=== PATIENT | female | born 1985 | race Caucasian/White ===

== ENCOUNTER → 2023-02-13 08:31 | Outpatient (CLI) | payer BC, SELFPAY ==
--- NOTE | ~2023-02-13 | MR_ITS ---
EXAMINATION: MR lumbar spine wo con DATE: 02/13/2023 09:02 INDICATION: Low back pain. Right hip pain. TECHNIQUE: Magnetic resonance imaging (MRI) of the lumbar spine was performed without intravenous con trast. Sequences included sagittal T2-weighted FSE, sagittal T2-weighted FS FSE, sagittal T1-weighted FSE, and axial T2-weighted FSE. COMPARISON: Lumbar spine MRI 09/16/2018 FINDINGS: There is 5 degrees levocurvature of lumbar spine. Vertebral body heights are normal. There is severely decreased disc height at L4-L5 and L5-S1 with endplate remodeling. The distal spinal cord signal intensity is normal. The conus medullaris is at L1. The following disc levels are specificall y discussed: L1-L2: The disc does not extend beyond the endplate margin. There is mild bilateral facet joint osteo arthritis. There is no neural foraminal stenosis. There is no central canal stenosis. L2-L3: The disc is mildly bulging. There is mild bilateral facet joint osteoarthritis. There is mild bilateral neural foraminal stenosis. There is no central canal stenosis. L3-L4: The disc is mildly bulging. There is mild bilateral facet joint osteoarthritis. There is mild left neural foraminal stenosis. There is no central canal stenosis. L4-L5: The disc is bulging and has an annular fissure. There is severe bilateral facet joint osteoart hritis. There is mild right and moderate left neural foraminal stenosis. There is mild central canal stenosis. L5-S1: The disc is bulging and has an annular fissure. There is mild bilateral facet joint osteoarthr itis. There is mild bilateral neural foraminal stenosis. There is mild central canal stenosis. IMPRESSION: 1. Severe lower lumbar spondylosis, worsened from 09/16/2018. Reviewed, dictated and finalized at location E.
== END ==
PROVIDERS: PCP Family Medicine; Visit Provider Family Medicine
DX: M25.551 Pain in right hip (principal); M70.61 Trochanteric bursitis, right hip; M54.50 Low back pain, unspecified; M43.06 Spondylolysis, lumbar region
CPT/HCPCS: 72148

== ENCOUNTER → 2023-02-25 09:17 | Outpatient (CLI) | payer BC, SELFPAY ==
--- NOTE | ~2023-02-25 | MMUS_ITS ---
EXAMINATION: MM diagnostic ruba BI w jair, US breast RT limited HISTORY: History of nodular appearing fibroglandular tissue in the subareolar aspect of the right jessica ast on ultrasound. TECHNIQUE: Craniocaudal, mediolateral, and mediolateral oblique 3-D tomosynthesis images of the breas ts were performed and synthetic 2-D images were generated. CAD analysis was submitted and interpreted . High resolution limited right breast ultrasound was performed. COMPARISON: 08/13/2022, 02/19/2022, 04/24/2021, 01/19/2021, 01/05/2020 BREAST PARENCHYMAL COMPOSITION: The breasts are extremely dense, which lowers the sensitivity of mamm ography. FINDINGS: MAMMOGRAPHIC FINDINGS: No suspicious mass, calcification, or architectural distortion are identified in either breast to sug gest malignancy. There has been no suspicious interval change. ULTRASOUND: There are cysts measuring up to 6 mm in the subareolar aspect of the right breast. No suspicious cyst ic or solid mass is identified. IMPRESSION: 1. No mammographic or sonographic evidence of malignancy. 2. Recommend routine screening. BI-RADS Category 2: Benign finding(s). Reviewed, dictated and finalized at location A. MANAGER IMPRESSION: 1. No mammographic or sonographic evidence of malignancy. 2. Recommend routine screening. BI-RADS Category 2: Benign finding(s).
== END ==
PROVIDERS: Visit Provider Obstetrics & Gynecology
DX: R92.8 Other abnormal and inconclusive findings on diagnostic imaging of breast (principal); Z80.3 Family history of malignant neoplasm of breast
CPT/HCPCS: 76642; 77062; 77066; G0279

== ENCOUNTER 2025-02-08 13:13 | Outpatient (CLI) | payer BC, SELFPAY ==
--- OUTSIDE RECORDS SUMMARY | 2023-08-25 03:45 | XMS_ITS ---
Author Organization [facility] Address [address] [place] [address] Care Team Providers Care Central Stores Attendant Name Role Phone Dr. Feliz Delarosa Primary Care Provider [phone] Annette Mattson Unavailable [phone] Results Component Value Reference Range Notes C Diff PCR Reviewed date:09/01/2023 12:00:00 AM Interpretation: Performing Lab: Notes/Report: Clostridium Difficle PCR Negative Campylobacter Stool Reviewed date:09/01/2023 12:00:00 AM Interpretation: Performing Lab: Notes/Report: Campylobacter Ag, Qual, Stool Negative Fecal Leukocytes Reviewed date:09/01/2023 12:00:00 AM Interpretation: Performing Lab: Notes/Report: Fecal Leuk See Below Giardia and Cryptosporidium Antigen Reviewed date:09/01/2023 12:00:00 AM Interpretation: Performing Lab: Notes/Report: Cryptospor Ag Negative Giardia Ag Negative Occult Blood Stool Reviewed date:09/01/2023 12:00:00 AM Interpretation: Performing Lab: Notes/Report: Occult Bld Stl Negative Ova and Parasite, Fecal-ARUP Reviewed date:09/01/2023 12:00:00 AM Interpretation: Performing Lab: Notes/Report: OP See Below Salmanella Shigella Culture Reviewed date:09/01/2023 12:00:00 AM Interpretation: Performing Lab: Notes/Report: C NegritoShig See Below Shiga Toxin Reviewed date:09/01/2023 12:00:00 AM Interpretation: Performing Lab: Notes/Report: Shiga Toxin 1, Qual, Stool Negative Shiga Toxin 2, Qual, Stool Negative REASON FOR VISIT Spot #3 Diarrhea Vital Signs Temperature 99.1 degrees Fahrenheit 08/25/19 24 Blood pressure systolic 128 mm Hg 08/25/19 24 Blood pressure diastolic 82 mm Hg 024 Heart Rate 71 /min 08/25/2023 Oximetry 97 % 08/25/2023 Encounters Encounter Location Date Provider Diagnosis [address] [address] 08/25/2023 Annette Mattson Diarrhea, unspecified R19.7 Assessments Encounter Date Diagnosis (ICD Code) Assessment Notes Treatment Notes Treatment Clinical Notes Section Notes 08/25/2023 Diarrhea, unspecified (ICD-10 - R19.7) Plan Of Treatment No Information Progress Notes * CHIQUISJaiden VARELAOB:1985 ( 39 yo F)Acc No.[id number]:08/25/2023 Patient: Bella Adams Provider: Miki Mattson NP :1985 A ge:38 Y S ex:Female Date:08/25/2023 Phone: [facility] Pcp:Dr. Feliz Delarosa Subjective: * Chief Complaints: * S pot #3 Diarrhea Objective: * Vitals: B P: 128/82 mm Hg, HR: 71 /min, Temp: 99.1 F, Oxygen sat %: 97 %. Past Vitals:* 06/19/2023 BP: 102/60 mm Hg, HR: 81 /mi n, Oxygen sat %: 98 %, Wt: 137.00 lbs, Wt-k.14 kg Assessment: * Assessment: 1. D iarrhea, unspecified - R19.7 S pecify :Src Diagnosis Name: Diarrhea Plan: * Labs: * L ab: Occult Blood Stool Value Reference Range O ccult Bld Stl Negative ?Lab: Shiga Toxin* Value Reference Range S medina Toxin 1, Qual, Stool Negative * S medina Toxin 2, Qual, Stool Negative ?Lab: Salmanella Shigella Culture* Value Reference Range C SalShig See Below * C SalShig: _ F inal No Salmonella or Shigella isolated at 3 days. _ _ T est Performed by: Madeleine Calixto [facility] [address] [place] [address], [address] [place] [phone] P santosh : ?Lab: Fecal Leukocytes* Value Reference Range F ecal Leuk See Below * Fecal Leuk: _ F inal No Leukocytes seen. _ _ T est Performed by: Madeleine Davila Nathalie [facility] [address] [place] [address], [address] [place] [phone] P santosh : ?Lab: Ova and Parasite, Fecal-ARUP* Value Reference Range O P See Below * OP: _ C malcolm Name Results Units Flag Ref Range _ O va and Parasite, Fecal Interp Negative Negative _ _ I NTERPRETIVE INFORMATION: Ova and Parasite, Fecal _ M ethod for identification of Ova and Parasites includes wet mount a nd trichrome stains. _ D ue to the various shedding cycles of many parasites, three s eparate stool specimens collected over a 5-7-day period are r ecommended for ova and parasite examination. A single negative r esult does not rule out the possibility of a parasitic infection. T he ova and parasite exam does not specifically detect C ryptosporidium, Cyclospora, Cystoisospora, and Microsporidia. For a dditional test information refer to [facility] consult, h [email or web address] P erformed By: [employer] [address] [place] [address] L aboratory Director: Everett Mckeon MD, PhD C MARIAH Number: [id number] _ ?Lab: C Diff PCR* Value Reference Range C lostridium Difficle PCR Negative * Clostridium Difficle PCR: _ A negative result does not rule out the presence of PCR reaction inhibitor(s) t hat is present in the patient specimen in a concentration that is below the d etection limit of the kathy. _ T est results should be used in conjunction with standard clinical evaluation for d iagnosis and patient management. _ A ll positive C Difficile PCR results reflex to C Difficile Toxins A&B testing. _ T est Performed by: Madeleine Davila Nathalie [facility] [address] [place] [address], [address] [place] [address] P santosh : ?Lab: Giardia and Cryptosporidium Antigen* Value Reference Range C ryptospor Ag Negative * G iardia Ag Negative ?Lab: Campylobacter Stool* Value Reference Range C ampylobacter Ag, Qual, Stool Negative * Electronic signature of Graciela Mattson on 02/08/2025 at 03:12 PM CDT Sign off status: Pending * Provider: Miki Mattson NP Date: 0 08/25/2023 Generated for Pravin hyman/Velma/Edgar on: 1 03:12 PM CDT
--- OUTSIDE RECORDS SUMMARY | 2023-09-05 11:00 | XMS_ITS ---
Author Organization [facility] Address [address] [place] [address] Care Team Providers Care News Producer Name Role Phone Dr. Feliz Delarosa Primary Care Provider [phone] Dr. Roxy Callahna Unavailable [phone] REASON FOR VISIT f/u diarrhea Vital Signs Temperature 98.5 degrees Fahrenheit 09/05/19 Blood pressure systolic 102 mm Hg 09/05/19 Blood pressure diastolic 68 mm Hg 024 Heart Rate 60 /min 09/05/2023 Respiratory Rate 16 /min 09/05/2023 Weight 136.51 lbs 09/05/2023 Oximetry 99 % 09/05/2023 Weight-kg 61.92 kg 09/05/2023 Encounters Encounter Location Date Provider Diagnosis [address] [address] 09/05/2023 Dr. Rxoy Callahan Sacroiliitis, not elsewhere classified M46.1 ; Constipation, unspecified K59.00 and Spinal stenosis, lumbar region without neurogenic claudication M48.061 Assessments Encounter Date Diagnosis (ICD Code) Assessment Notes Treatment Notes Treatment Clinical Notes Section Notes 09/05/2023 Sacroiliitis, not elsewhere classified (ICD-10 - M46.1) 09/05/2023 Constipation, unspecified (ICD-10 - K59.00) 09/05/2023 Spinal stenosis, lumbar region without neurogenic claudication (ICD-10 - M48.061) Plan Of Treatment No Information Progress Notes * Jaiden CLARKOB:1985 ( 39 yo F)Acc No.[id number]:09/05/2023 Progress Notes Patient: Bella Adams Provider: Shahida Callahan MD :1985 A ge:38 Y S ex:Female Date:09/05/2023 Phone: Address:[facility] Pcp:Dr. Feliz Delarosa Subjective: * Chief Complaints: * F /u diarrhea Objective: * Vitals: B P: 102/68 mm Hg, HR: 60 /min, RR: 16 /min, Temp: 98.5 F, Oxygen sat %: 99 %, Wt: 136.51 lbs, Wt-k.92 kg. Past Vitals:* 06/19/2023 BP: 102/60 mm Hg, HR: 81 /mi n, Oxygen sat %: 98 %, Wt: 137.00 lbs, Wt-k.14 kg Assessment: * Assessment: 1. C onstipation, unspecified - K59.00 S pecify :Src Diagnosis Name: Constipation 2 . S acroiliitis, not elsewhere classified - M46.1 S pecify :Src Diagnosis Name: Sacroiliitis 3 . S bang stenosis, lumbar region without neurogenic claudication - M48.061? Specify :Src Diagnosis Name: Lumbar spinal stenosis * Electronic signature of Dr. Roxy Callahan on 02/08/2025 at 03:12 PM CDT Sign off status: Pending * Provider: Shahida Callahan MD Date: 0 09/05/2023 Generated for Normai boogie/Velma/eTransmitting on: 1 03:12 PM CDT
--- OUTSIDE RECORDS SUMMARY | 2023-09-10 04:00 | XMS_ITS ---
Author Organization [facility] Address [address] [place] [address] Care Team Providers Care Calculus Teacher Name Role Phone Dr. Feliz Delarosa Primary Care Provider [phone] Migration, Provider Unavailable Unavailable REASON FOR VISIT EMR-Sandeep Encounters Encounter Location Date Provider Diagnosis [facility] [address] [place] [address] 09/10/2023 Provider Migration Constipation, unspecified K59.00 Assessments Encounter Date Diagnosis (ICD Code) Assessment Notes Treatment Notes Treatment Clinical Notes Section Notes 09/10/2023 Constipation, unspecified (ICD-10 - K59.00) Plan Of Treatment No Information Progress Notes * Jaiden CLARKOB:1985 ( 39 yo F)Acc No.[id number]:09/10/2023 Patient: Bella Adams Provider: Louis castano Migration :1985 A ge:38 Y S ex:Female Date:09/10/2023 Phone: Address:[address] [place], [place] [phone] Pcp:Dr. Feliz Delarosa Subjective: * Chief Complaints: * E MR-Sandeep Objective: Past Vitals:* 09/05/2023 BP: 102/68 mm Hg, HR: 60 /mi n, Oxygen sat %: 99 %, Wt: 136.51 lbs, Wt-k.92 kg * 06/19/2023 BP: 102/60 mm Hg, HR: 81 /mi n, Oxygen sat %: 98 %, Wt: 137.00 lbs, Wt-k.14 kg Assessment: * Assessment: 1. C onstipation, unspecified - K59.00 S pecify :Src Diagnosis Name: Constipation * Electronic signature of Estrellita acevedo Migration on 02/08/2025 at 03:13 PM CDT Sign off status: Pending * Provider: Louis castano Migration Date: 0 09/10/2023 Generated for Pravin hyman/Velma/Edgar on: 1 03:13 PM CDT
--- OUTSIDE RECORDS SUMMARY | 2023-10-03 04:00 | XMS_ITS ---
Author Organization [facility] Address [address] [place] [address] Care Team Providers Care Pile Fabric Knitter Name Role Phone Dr. Feliz Delarosa Primary Care Provider [phone] Migration, Provider Unavailable Unavailable REASON FOR VISIT [facility] Encounters Encounter Location Date Provider Diagnosis [facility] [address] [place] [address] 10/03/2023 Provider Migration Constipation, unspecified K59.00 Assessments Encounter Date Diagnosis (ICD Code) Assessment Notes Treatment Notes Treatment Clinical Notes Section Notes 10/03/2023 Constipation, unspecified (ICD-10 - K59.00) Plan Of Treatment No Information Progress Notes * Jaiden CLARKOB:1985 ( 39 yo F)Acc No.[id number]:10/03/2023 Patient: Bella Adams Provider: Louis castano Migration :1985 A ge:38 Y S ex:Female Date:10/03/2023 Phone: Address:[address] [place], [place] [phone] Pcp:Dr. Feliz Delarosa Subjective: * Chief Complaints: [...] of Estrellita acevedo Migration on 02/08/2025 at 03:12 PM CDT Sign off status: Pending * Provider: Louis castano Migration Date: 0 10/03/2023 Generated for Pravin hyman/Velma/Edgar on: 1 03:12 PM CDT
--- OUTSIDE RECORDS SUMMARY | 2023-10-29 04:00 | XMS_ITS ---
Author Organization [facility] Address [address] [place] [address] Care Team Providers Care Major Assembly Lineman Name Role Phone Dr. Feliz Delarosa Primary Care Provider [phone] Migration, Provider Unavailable Unavailable REASON FOR VISIT EMR-[facility] Encounters Encounter Location Date Provider Diagnosis [facility] [address] [place] [address] 10/29/2023 Provider Migration Constipation, unspecified K59.00 Assessments Encounter Date Diagnosis (ICD Code) Assessment Notes Treatment Notes Treatment Clinical Notes Section Notes 10/29/2023 Constipation, unspecified (ICD-10 - K59.00) Plan Of Treatment No Information Progress Notes * Jaiden CLARKOB:1985 ( 39 yo F)Acc No.[id number]:10/29/2023 Patient: Bella Adams Provider: Louis castano Migration :1985 A ge:38 Y S ex:Female Date:10/29/2023 Phone: Address:[address] [place], [place] [phone] Pcp:Dr. Feliz Delaroas Subjective: * Chief Complaints: * E MR-Sandeep [...] * Provider: Louis castano Migration Date: 0 10/29/2023 Generated for Pravin hyman/Velma/Edgar on: 1 03:12 PM CDT
--- OUTSIDE RECORDS SUMMARY | 2023-11-03 04:00 | XMS_ITS ---
Author Organization [facility] Address [address] [place] [address] Care Team Providers Care Generation Technologist Name Role Phone Dr. Feliz Delarosa Primary Care Provider [phone] Migration, Provider Unavailable Unavailable REASON FOR VISIT EMR-Sandeep Encounters Encounter Location Date Provider Diagnosis [facility] [address] [place] [address] 11/03/2023 Provider Migration Constipation, unspecified K59.00 Assessments Encounter Date Diagnosis (ICD Code) Assessment Notes Treatment Notes Treatment Clinical Notes Section Notes 11/03/2023 Constipation, unspecified (ICD-10 - K59.00) Plan Of Treatment No Information Progress Notes * Jaiden CLARKOB:1985 ( 39 yo F)Acc No.[id number]:11/03/2023 Patient: Bella Adams Provider: Louis castano Migration :1985 A ge:38 Y S ex:Female Date:11/03/2023 Phone: Address:[address] [place], [place] [phone] Pcp:Dr. Feliz Delarosa Subjective: * Chief Complaints: [...] * Provider: Louis castano Migration Date: 0 11/03/2023 Generated for Pravin hyman/Velma/Edgar on: 1 03:12 PM CDT
--- OUTSIDE RECORDS SUMMARY | 2024-03-13 04:00 | XMS_ITS ---
Author Organization [facility] Address [address] [place] [address] Care Team Providers Care Stave Cutter Name Role Phone Dr. Feliz Delarosa Primary Care Provider [phone] Migration, Provider Unavailable Unavailable REASON FOR VISIT EMR-Sandeep Encounters Encounter Location Date Provider Diagnosis [facility] [address] [place] [address] 03/13/2024 Provider Migration Plan Of Treatment Medication Medication Name Sig Start Date Stop Date Notes Cyclobenzaprine HCl 10 MG Tablet 1 Oral three times a day; Duration: 10 01/30/2023 02/08/2023 ,PRN Reason:for pain Ondansetron 4 MG Tablet Disintegrating 1 Oral every 6-8 hours; Duration: 0 08/25/2023 08/25/2023 Trulance 3 MG Tablet 3 Oral every day; Duration: 09/05/2023 10/02/2023 did not work,discontinuere ason:Discontinued buPROPion HCl 75 MG Tablet Oral; Duratio n: 14 02/15/2022 02/28/2022 busPIRone HCl 10 MG Tablet 1 Oral two ti mes a day; Duration: 90 11/22/2021 02/14/2022 ,discontinuereason :Discontinued buPROPion HCl ER (XL) 150 MG Tablet Extended Release 24 Hour 1 Oral every day; Duration: 90 07/30/2021 02/14/2022 ,discontinuereason :Discontinued Nortriptyline HCl 10 MG/5ML Solution 5 Oral every night at bedtime; Duration: 30 06/19/2023 07/08/2023 ,discontinuereason :Refilled HYDROcodone-Acetaminophen 10-325 MG Tablet 1 Oral Q6H; Duration: 01/30/2023 02/08/2023 ,PRN Reason:for pain Doxycycline Monohydrate 100 MG Capsule 1 Oral two times a day; Duration: 06/30/2023 07/09/2023 Motegrity 2 MG Tablet 1 Oral every day; Duration: 11/03/2023 01/31/2024 Wellbutrin XL 150 MG Tablet Extended Release 24 Hour 1 Oral every day; Duration: 08/14/2020 08/14/2020 Rx Refill Request,discontinu ereason:Refilled Polyethylene Glycol 3350 17 GM/SCOOP Powder Oral; Duration: 04/05/2021 06/03/2021 Nortriptyline HCl 25 MG Capsule 1 Oral every night at bedtime; Duration: 07/09/2023 09/04/2023 ,discontinuereason :Discontinued Progress Notes * Jaiden CLARKOB:1985 ( 39 yo F)Acc No.[id number]:03/13/2024 Patient: Jimenez CEVALLOS Bella :1985 A ge:38 Y S ex:Female Phone: Address[facility] [place], [address] * Refills Stop Wellbutrin XL Tablet Extended Release 24 Hour, 150 MG, Oral, 90, 1, every day, 90 Stop Nortriptyline HCl Capsule, 25 MG, Oral, 30, 1, every night at bedtime, 30 Stop Doxycycline Monohydrate Capsule, 100 MG, Oral, 20, 1, two times a day, 10 Stop HYDROcodone-Acetaminophen Tablet, 10-325 MG, Oral, 15, 1, Q6H, 10 Stop busPIRone HCl Tablet, 10 MG, Oral, 180, 1, two times a day, 90 Stop Ondansetron Tablet Disintegrating, 4 MG, Oral, 30, 1, every 6-8 hours, 0 Stop Trulance Tablet, 3 MG, Oral, 90, 3, every day, 30 Stop Polyethylene Glycol 3350 Powder, 17 GM/SCOOP, Oral, 1020, 30 Stop Motegrity Tablet, 2 MG, Oral, 30, 1, every day, 30 Stop Cyclobenzaprine HCl Tablet, 10 MG, Oral, 30, 1, three times a day, 10 Stop busPIRone HCl Tablet, 10 MG, Oral, 180, 1, two times a day, 90 Stop Cyclobenzaprine HCl Tablet, 10 MG, Oral, 15, 1, three times a day, 10 Stop buPROPion HCl ER (XL) Tablet Extended Release 24 Hour, 150 MG, Oral, 90, 1, every day, 90 Stop Motegrity Tablet, 2 MG, Oral, 30, 1, every day, 30 Stop Nortriptyline HCl Solution, 10 MG/5ML, Oral, 150, 5, every night at bedtime, 30 Stop buPROPion HCl Tablet, 75 MG, Oral, 21, 14 Subjective: * Chief Complaints: * E MR-Sandeep Objective: Past Vitals:* 09/05/2023 BP: 102/68 mm Hg, HR: 60 /mi n, Oxygen sat %: 99 %, Wt: 136.51 lbs, Wt-k.92 kg * 06/19/2023 BP: 102/60 mm Hg, HR: 81 /mi n, Oxygen sat %: 98 %, Wt: 137.00 lbs, Wt-k.14 kg * * Date:
--- OUTSIDE RECORDS SUMMARY | 2024-03-14 04:00 | XMS_ITS ---
Author Organization [facility] Address [address] [place] [address] Care Team Providers Care Caisson Worker Name Role Phone Dr. Feliz Delarosa Primary Care Provider [phone] Migration, Provider Unavailable Unavailable Allergies No Known Allergies REASON FOR VISIT EMR-Sandeep Medications Medication SIG (Take, Route, Frequency, Duration) Notes Start Date End Date Status Vitamin D3 oral; Duration: 0 *Pick strength-form from [employer] for eRX* 06/19/2023 Active Anusol-HC 25 MG Suppository 1 Rectal two times a day; Duration: 0 08/25/2023 Active Probiotic oral; Duration: 0 *Pick strength-form from [employer] for eRX* 06/19/2023 Active Fish Oil 1000 MG Capsule 1 Oral every day; Duration: 0 06/19/2023 Active Proctosol HC 2.5 % Cream 1 External as directed; Duration: 0 08/25/2023 Active Lactulose 10 GM/15ML Solution 15-30 Oral every day; Duration: 0 10/29/2023 Active Magnesium oral; Duration: 0 *Pick strength-form from [facility] for eRX* 06/19/2023 Active Naproxen 500 MG Tablet 1 Oral two times a day; Duration: 30 06/06/2021 Active Social History Social History Additional Details Category Social Info Options Details Migrated Social History Migrated Social History Tobacco history:Never smoker , Marital status: Encounters Encounter Location Date Provider Diagnosis [facility] [address] [place] [address] 03/14/2024 Provider Migration Plan Of Treatment No Information Progress Notes * Pedrito CLARK:1985 ( 39 yo F)Acc No.[id number]:03/14/2024 Patient: Bella ULRICH :1985 A ge:38 Y S ex:Female Phone: [facility] [address] Subjective: * Chief Complaints: * E MR-Sandeep * Surgical History: Colonoscopy 02/26/2017 * Family History: A unt: Rheumatoid arthritis (RA). * Social History: M igrated Social History: M igrated Social History: Tobacco history:Never smoker,Marital status:. * Medications: T akingVitamin D3 oral , Notes to Pharmacist: *[facility]*Probiotic oral , Notes to Pharmacist: *[facility]*Lactulose 10 GM/15ML Solution 15-30 Oral every day Naproxen 500 MG Tablet 1 Oral two times a day Proctosol HC 2.5 % Cream 1 External as directed Fish Oil 1000 MG Capsule 1 Oral every day Magnesium oral , Notes to Pharmacist: *[facility]*Anusol-HC 25 MG Suppository 1 Rectal two times a day Taking Vitamin D3 oral , Notes to Pharmacist: *[facility]*Taking Probiotic oral , Notes to Pharmacist: *[facility]*Taking Lactulose 10 GM/15ML Solution 15-30 Oral every day Taking Naproxen 500 MG Tablet 1 Oral two times a day Taking Proctosol HC 2.5 % Cream 1 External as directed Taking Fish Oil 1000 MG Capsule 1 Oral every day Taking Magnesium oral , Notes to Pharmacist: *[facility]*Taking Anusol-HC 25 MG Suppository 1 Rectal two times a day * Allergies: N .K.D.A. Objective: Past Vitals:* 09/05/2023 BP: 102/68 mm Hg, HR: 60 /mi n, Oxygen sat %: 99 %, Wt: 136.51 lbs, Wt-k.92 kg * 06/19/2023 BP: 102/60 mm Hg, HR: 81 /mi n, Oxygen sat %: 98 %, Wt: 137.00 lbs, Wt-k.14 kg * * Date:
--- NOTE | ~2025-02-08 | MM_ITS ---
EXAMINATION: MM diagnostic ruba BI w jair HISTORY: Family history of breast cancer TECHNIQUE: Additional 3-D tomosynthesis images of the breasts were performed and synthetic 2-D images were generated. CAD analysis was submitted and interpreted. COMPARISON: Comparison to multiple prior studies sequentially, with oldest reviewed study dated 09/16/2018. BREAST PARENCHYMAL COMPOSITION: Dense: The breasts are extremely dense, which lowers the sensitivity of mammography. FINDINGS: The breasts are stable. No new masses, calcifications or architectural distortion in either breast to suggest malignancy. IMPRESSION: 1. No evidence for malignancy in either breast. 2. Routine yearly screening mammogram and regular clinical breast examination are recommended. BI-RADS Category 1: Negative Reviewed, dictated and finalized at location B. IMPRESSION: 1. No evidence for malignancy in either breast. 2. Routine yearly screening mammogram and regular clinical breast examination a re recommended. BI-RADS Category 1: Negative
--- OUTSIDE RECORDS SUMMARY | 2025-02-08 15:12 | XMS_ITS | Encounter Summary ---
Author Organization [facility] Address [address] [place] [address] Care Team Providers Care Cotton Grader Name Role Phone January Durant MD Primary Care Provider [phone]- [phone] Encounter Details Date Type Department Care Team (Late st Contact Info) Description 02/27/2023 Lab Requisition [facility] - DermPath Lab [address] [place] [id number] Waylon Leary MD [address] [place] [address] Social History Tobacco Use Types Packs/Day Years Used Date Smoking Tobacco: Never Smokeless Tobacco: Never Alcohol Use Standard Drinks/Week Comments No 0 (1 standard drink = 0.6 oz pur e alcohol) Comments No Sex and Gender Information Value Date Recorded Sex Assigned at Not on file Legal Sex Female 1:45 PM CDT Gender Identity Not on file Sexual Orientation Not on file documented as of this encounter Functional Status * Is person deaf or have serious hearing difficulty? Answer Date of Assessment Author No 11/09/2015 5:16 AM Madeleine Byrne RN * Is person blind or have serious difficulty seeing? Answer Date of Assessment Author No 11/09/2015 5:16 AM Madeleine Byrne RN * Does person have serious difficulty walking/climbing stairs? Answer Date of Assessment Author No 11/09/2015 5:16 AM Madeleine Byrne RN * Does person have difficulty dressing/bathing? Answer Date of Assessment Author No 11/09/2015 5:16 AM Madeleine Byrne RN * Does person have difficulty doing errands alone? Answer Date of Assessment Author No 11/09/2015 5:16 AM Madeleine Byrne RN documented as of this encounter Mental Status * Does person have difficulty concentrating/remembering/making decisions? Answer Entry Date Author No 11/09/2015 5:16 AM Madeleine Byrne RN documented in this encounter Plan of Treatment Not on file documented as of this encounter Procedures Procedure Name Priority Date/Time Associated Diagnosis Comments DERMATOPATHOLOGY Routine 02/25/2023 12:0 0 AM [facility] documented in this encounter Results * DERMATOPATHOLOGY (02/25/2023 12:00 AM [facility] F[facility]ER) Case Report Dermatopathology Report Case: [id number] Authorizing Provider: Waylon Leary MD Collected: 02/25/2023 12:00 AM Ordering Location: [facility] DermPath Lab Received: 02/27/2023 10:55 AM Pathologist: Justine Vuong MD Specimens: A) - Skin, right scapula B) - Skin, right post shoulder 3:52 PM [facility] DERMATOPATHOLOGY LABORATORY Final Diagnosis Specimen A. SKIN, right scapula: INTRADERMAL MELANOCYTIC NEVUS (D22.5) Specimen B. SKIN, right post shoulder: INTRADERMAL MELANOCYTIC NEVUS (D22.61) 3:52 PM [facility] DERMATOPATHOLOGY LABORATORY at [address] [facility] Clinical History A: Nevus Path# [id number] B: Nevus Path# [id number] 3:52 PM [facility] DERMATOP[facility]OLOGY LABORATORY Gross Description Specimen A: Received is one formalin filled container labeled with the patient's name and designated right scapula. The specimen consists of a shave biopsy measuring 7x6x3 mm. Jar 0. Specimen B: Received is one formalin filled container labeled with the patient's name and designated right post shoulder. The specimen consists of a shave biopsy measuring 6x6x2 mm. Jar 0. 3:52 PM [facility] DERMATOPATHOLOGY LABORATORY Microscopic Description Specimen A. SKIN, right scapula: There are nests of cytologically bland melanocytes within the dermis that mature with depth. Specimen B. SKIN, right post shoulder: There are nests of cytologically bland melanocytes within the dermis that mature with depth. 3 3:52 PM [facility] DERMATOPATHOLOGY LABORATORY Disclaimer An external and internal positive and negative controls are appropriate for the histochemical, immunohistochemical and immunofluorescence stain(s) in this case (if any), except where stated explicitly. The performance characteristics of the stain(s) cited in this report were developed and its performance characteristic determined by the Dermatopathology Laboratory at [facility], directed by Dr. Mariaa Castañeda. These tests need not be, and therefore are not, approved by the [place] Food and Drug Administration. The tests are used for clinical purposes. Billing Codes Specimen Charges Stain Charges 59779 77715 1 1 3 3:52 PM [facility] DERMAT[facility]Y LABORATORY Embedded Images 3 3:52 PM [facility] DERMAT[facility]Y LABORATORY Pathology/Cytology TISSUE SPECIMEN FROM SKIN / Unknown 02/25/2023 02/27/2023 10:55 AM [facility] Miscellaneous samples (specimen) TISSUE SPECIMEN FROM SKIN / Unknown 02/25/2023 02/27/2023 10:55 AM [facility] Waylon Leary MD LAB - PATHOLOGY/CYTOLOGY ORDER ERNESTINE Final Result DERMATOPATHOLOGY LABORATORY [facility] - Department of Dermatology [address], [address] [phone] documented in this encounter Visit Diagnoses Not on filedocumented in this encounter Care Teams Cotton Grader Relationship Specialty Start Date End Date January Durant MD [address] [place] [address] PCP - General Obstetrics and Gynecology 11/09/15 documented as of this encounter
--- OUTSIDE RECORDS SUMMARY | 2025-02-08 15:12 | XMS_ITS | Clinical Summary ---
Author Organization [facility] Address [address] [place] [address] Care Team Providers Care Track Vehicle Repairer Name Role Phone January Durant MD Primary Care Provider [phone]- [phone] [facility],non-owned Affiliates and Associated Physician Practices is amultiple site organization consisting of ambulatory clinics and hospital sitesin [place], [place], [place] and [place]. This disclosure is being madepursuant to the Care Everywhere program and may not contain all information available regarding this patient. Last updated 18.[facility] Allergies No known active allergies Medications * Be aware that medications may not be up to date on this document. Alwaysverify current medications with the patient. polyethylene glycol 3350 (MIRALAX) packet Take 17 g by mouth once daily Active Carbonyl Iron (FEOSOL PO) Active calcium polycarbophil (FIBERCON) 625 MG tablet Take 625 mg by mouth once daily Active Prenat w/o [id number] HILL (CITRANATAL 90 DHA PO) Take by mouth once daily Active Probiotic Product (Nantero HEALTH PO) Active acetaminophen (TYLENOL) 500 MG tablet Take 2 Tabs by mouth every 6 hours as needed for Pain Maximum allowable Acetaminophen amount = 4 Grams (4000 mg) / 24 hours. 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 Hat Trimmer: Dr. Selvin Delarosa [place], [place] Planned surveillance: Weekly testing to include NST, BPP with ISABEL Planned delivery location: [facility] Planned GA at delivery: 39w, IOL scheduled on 716 at 0730 Planned mode of delivery: TBD- Hx of 2012 Placenta Instructions: Not needed for studies by NURSING HOME Autopsy indicated: In the event of / , autopsy would be helpful in establishing a diagnosis. Obtaining sample for possible future DNA testing would also be important. Genetics note: genetic diagnostic testing was not performed. 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 Patient desires microarray to be performed on cord blood at the time of delivery. Please draw at least 3cc cord blood in purple top EDTA tube. If after office hours, on a weekend or a holiday, please hold in refrigerator in sendout laboratory and call the genetic counselors at [phone] or 2017 to notify that specimen is ready for sendout. Order can be placed by genetic counselor in baby's chart at that time.Please request Genetics consult postnatally if clinically indicated by calling the Genetics office at [phone] prior to ordering genetic studies. Fixture Builder Concerns: 08/14/15- Patient with a history of depression, no medication currently Footprints: Bella would like to get professional pictures of ihsan Sanchez but is aware that his medical needs will be priority and attempts to arrange for photos after stabilized will occur or if baby does not do well and care is redirected to [facility] then we will try to arrange scientific photographer to come. Any memorabilia would be desired if baby outcome poor. Latter-Day is desired and family have arranged with their needle maker to come after for this sacrament. Pt and her also hope to donate blood for ihsan Sanchez's heart surgery, family are anticipating baby surgery to occur between day 4-6 of life. I contacted Dr Sheehan and she informed me that mother is not eligible to donate after delivery and if baby and father are a match then he can start the process of blood donation specifically for ihsan Sanchez, I called and informed Bella of this information. This care plan is based on evaluation and is subject to change based on assessment. Please see Images or Cardiac under Chart Review for US/ ECHO reports. Family History Medical History Relation Name Comments Cancer Mother Pancreatic Canc er - 2014 after 2 years of treatment Relation Name Status Comments Mother Social History Tobacco Use Types Packs/Day Years Used Date Smoking Tobacco: Never Smokeless Tobacco: Never Alcohol Use Standard Drinks/Week Comments No 0 (1 standard drink = 0.6 oz pur e alcohol) Comments No Sex and Gender Information Value Date Recorded Sex Assigned at Not on file Legal Sex Female 1:45 PM CDT Gender Identity Not on file Sexual Orientation Not on file Last Filed Vital Signs Vital Sign Reading Time Taken Comments Blood Pressure 124/86 11/11/2015 7:45 AM CDT Pulse 80 11/10/2015 8:20 PM CDT Temperature 36.9 C (98.5 F) 11/11/2015 11:35 AM CDT Respiratory Rate 18 11/11/2015 7:45 AM CDT Oxygen Saturation 99% 11/11/2015 7:45 AM CDT Inhaled Oxygen Concentration - - Weight 65.2 kg (143 lb 12.8 oz) 11/09/2015 2:32 AM CDT Height 162.6 cm (5' 4) 11/09/2015 2:32 AM CDT Body Mass Index 24.68 11/09/2015 2:32 AM CDT Plan of Treatment Health Maintenance Due Date Last Done Comments LIPID TESTING 1984 MAMMOGRAM 1984 HIV SCREENING 1999 HEPATITIS C SCREENING 03/24/2002 DTAP/TDAP/TD VACCINES (1 - Tdap) 2003 HEPATITIS B VACCINE (1 of 3 - 19+ 3-dose series) 2003 PAP SMEAR 2005 HPV VACCINE (1 - 3-dose SCDM series) 2011 DEPRESSION SCREENING 04/14/2024 COVID-19 VACCINE (1 - 2023-2 5 season) 2024 INFLUENZA VACCINE (#1) 2024 ZOSTER VACCINE (1 of 2) 2034 HIB VACCINE Aged Out No longer eligi ble based on patient's age to complete this topic MENINGOCOCCAL (Group B) VACC INE SHARED DECISION-MAKING Aged Out No longer eligibl e based on patient's age to complete this topic MENINGOCOCCAL GROUPS A/C/Y/W VACCINE Aged Out No longer eligible b ased on patient's age to complete this topic PNEUMOCOCCAL VACCINE Aged Out No long er eligible based on patient's age to complete this topic Insurance [employer] [facility] Member Subscriber Plan / Payer (Ef fective for All Dates) Name:Bella Clark Relation to Subscriber:Spouse Name:LUIS ALBERTO CLARK Date of :1983 (Home) Address: [address] [place] [id number] Payer ID:Not on file Type:PPO Address: [place] [phone] [facility] Member Subscriber Plan / Payer (Ef fective for All Dates) Name:Bella Clark Relation to Subscriber:Self Name:Bella Clark Payer ID:Not on file Type:PPO Address: [address] Advance Directives * Full Code (Latest Code Status on File) Date Activated Date Inactivated Comments 11/08/2015 9:35 AM 11/08/2015 12:41 PM * Full Code Date Activated Date Inactivated Comments 11/01/2015 10:19 AM 11/02/2015 1:09 PM Care Teams Track Vehicle Repairer Relationship Specialty Start Date End Date January Durant MD [address] [place] [address] PCP - General Obstetrics and Gynecology 11/09/15
--- OUTSIDE RECORDS SUMMARY | 2025-02-08 15:13 | XMS_ITS | Patient Health Record ---
Author Organization [facility] Address [address] [place] [address] Care Team Providers Care Hop Sorter Name Role Phone Dr. Feliz Delarosa Primary Care Provider [phone] Dr. Roxy Callahan Unavailable [phone] Migration, Provider Unavailable Unavailable Allergies No Known Allergies Reason For Referral No Information Medications Medication SIG (Take, Route, Frequency, Duration) Notes Start Date End Date Status Fish Oil 1000 MG Capsule 1 Oral every day; Duration: 0 06/19/2023 Not-Taking Magnesium oral; Duration: 0 *Pick strength-form from [employer] for eRX* 06/19/2023 Active Naproxen 500 MG Tablet 1 Oral two times a day; Duration: 30 06/06/2021 Not-Taking Proctosol HC 2.5 % Cream 1 External as directed; Duration: 0 08/25/2023 Not-Taking Probiotic oral; Duration: 0 *Pick strength-form from [employer] for eRX* 06/19/2023 Active Lactulose 10 GM/15ML Solution 15-30 Oral every day; Duration: 0 10/29/2023 Not-Taking Spironolactone 100 MG Tablet 1 tablet Orally Once a day Active Vitamin D3 oral; Duration: 0 *Pick strength-form from [employer] for eRX* 06/19/2023 Active Vitamin B-12 5000 MCG Tablet Sublingual as directed Sublingual Active Anusol-HC 25 MG Suppository 1 Rectal two times a day; Duration: 0 08/25/2023 Not-Taking Immunizations Vaccine Route Administration Date Status Comme nts Tdap Unknown 08/23/2015 Administered Source VFC Code: : Td (adult), adsorbed Unknown 09/05/1998 Administered Source VFC Code: : OPV Unknown 1984 Administered Source VFC Code: : OPV Unknown 1984 Administered Source VFC Code: : OPV Unknown 1984 Administered Source VFC Code: : OPV Unknown 09/28/1985 Administered Source VFC Code: : OPV Unknown 08/13/1989 Administered Source VFC Code: : Moderna Covid-19 Vaccine 1st dose IM Intramuscular 06/19/2020 Administered Source VFC Code: : Moderna Covid-19 Vaccine 1st dose IM Intramuscular 07/14/2020 Administered Source VFC Code: : Moderna Covid-19 Vaccine 1st dose IM Intramuscular 02/04/2022 Administered Source VFC Code: : MMR Unknown 07/06/1985 Administered Source VFC Code: : MMR Unknown 08/24/1991 Administered Source VFC Code: : Influenza, quadrivalent (IIV4), split virus, 6-35 months dosage IM Intramuscular 03/14/2023 Administered Source VFC Code: : Influenza virus vaccine, quadrivalent (IIV4), split virus, 0.25 mL dosage IM Intramuscular 03/05/2021 Administered Source VFC Code: : HPV (human papillomavirus), quadrivalent, 3 dose schedule Unknown 06/13/2006 Administered Source VFC Code: : HPV (human papillomavirus), quadrivalent, 3 dose schedule Unknown 09/09/2006 Administered Source VFC Code: : HPV (human papillomavirus), quadrivalent, 3 dose schedule Unknown 01/20/2007 Administered Source VFC Code: : Hep B, adolescent or pediatric (11-19), 3 dose schedule Unknown 02/19/2002 Administered Source VFC Code: : Hep B, adolescent or pediatric (11-19), 3 dose schedule Unknown 03/19/2002 Administered Source VFC Code: : Hep B, adolescent or pediatric (11-19), 3 dose schedule Unknown 08/20/2002 Administered Source VFC Code: : Hep A, Adult Unknown 06/13/2006 Administered Source VFC Code: : Hep A, Adult Unknown 01/20/2007 Administered Source VFC Code: : Social History Social History Additional Details Category Social Info Options Details Migrated Social History Migrated Social History Tobacco history:Never smoker , Marital status: Problems Problem Type SNOMED Code ICD Code Onset Dates Problem Status W/U Status Risk Notes Problem Generalized anxiety disorder (49735974) Generalized anxiety disorder (F41.1) Active confirmed Problem Seasonal affective disorder (990828845) Seasonal affective disorder (F33.8) Active confirmed Problem Generalized anxiety disorder (13253919) Generalized anxiety disorder (300.02) 02/24/20 18 Active confirmed Problem Obstructive sleep apnea syndrome (disorder) (32962897) Obstructive sleep apnea (adult) (pediatric) (G47.33) 06/19/19 24 Active confirmed MILD Problem Spinal stenosis of lumbar region (69216119) Spinal stenosis, lumbar region without neurogenic claudication (M48.061) 03/21/20 23 Active confirmed Problem Lumbosacral spondylosis without myelopathy (06619919) Spondylosis without myelopathy or radiculopathy, lumbar region (M47.816) 03/21/20 23 Active confirmed Problem Solitary sacroiliitis (853735176) Sacroiliitis, not elsewhere classified (M46.1) 01/31/20 23 Active confirmed Problem Hypomagnesemia (640701392) Hypomagnesemia (E83.42) Active confirmed Problem Adult health examination (474363285) Encounter for general adult medical examination without abnormal findings (Z00.00) 06/19/19 24 Active confirmed Problem Trochanteric bursitis of right hip (414648659048937) Trochanteric bursitis, right hip (M70.61) 01/31/20 23 Active confirmed Problem Arthralgia of the pelvic region and thigh (078293206) Pain in right hip (M25.551) 01/31/20 23 Active confirmed Problem Abnormal immunology finding (468431419) Other specified abnormal immunological findings in serum (R76.8) 04/18/19 24 Active confirmed Problem Constipation (48833243) Constipation, unspecified (K59.00) 06/19/19 24 Active confirmed Problem Mild recurrent major depression (67102567) Major depressive disorder, recurrent, mild (F33.0) 06/19/19 24 Active confirmed Vital Signs Heart Rate 82 /min 02/04/2025 Temperature 98.2 degrees Fahrenheit 02/04/2025 Height-cm 162.56 cm 02/04/2025 Oximetry 97 % 02/04/2025 Blood pressure diastolic 66 mm Hg 02/04/2025 Weight-kg 60.96 kg 02/04/2025 Height 64.00 in 02/04/2025 Blood pressure systolic 102 mm Hg 02/04/2025 Weight 134.4 lbs 02/04/2025 BMI 23.07 kg/m2 02/04/2025 Encounters Encounter Location Date Provider Diagnosis [address] [address] 02/04/2025 Dr. Roxy Callahan Encounter for general adult medical examination with abnormal findings Z00.01 ; Nonintractable episodic headache, unspecified headache type R51.9 ; Other fatigue R53.83 ; Orthostatic hypotension I95.1 ; Seasonal affective disorder F33.8 ; Generalized anxiety disorder F41.1 and EMMY positive R76.[address] [address] 03/13/[address] [address] 03/14/[address] [address] 10/11/2024 Dr. Roxy Callahan [address] [address] 01/27/2025 Dr. Roxy Callahan Encounter for general adult medical examination without abnormal findings Z00.00 and Hypomagnesemia E83.42 Assessments Encounter Date Diagnosis (ICD Code) Assessment Notes Treatment Notes Treatment Clinical Notes Section Notes 01/27/2025 Encounter for general adult medical examination without abnormal findings (ICD-10 - Z00.00) 02/04/2025 Encounter for general adult medical examination with abnormal findings (ICD-10 - Z00.01) 02/04/2025 Nonintractable episodic headache, unspecified headache type (ICD-10 - R51.9) Headaches and orthostatic hypotension: - Recent onset of headaches and increased frequency of orthostatic hypotension. Differential includes autonomic dysfunction and possible hormonal changes. - Ordered laboratory evaluation including EMMY comprehensive plus panel to assess for autoimmune etiologies. - Will review results for further management. 02/04/2025 Other fatigue (ICD-10 - R53.83) Sleep disturbance and fatigue: - Persistent fatigue and poor sleep quality despite CPAP use. No evidence of sleep paralysis or narcolepsy. Fatigue likely multifactorial, including anxiety, chronic stress, and possible hormonal factors. - Ordered laboratory evaluation including B12, vitamin D, iron, magnesium, pituitary hormones, LH, FSH, estradiol, and testosterone to assess for metabolic and hormonal contributors. - Advised continued CPAP use. - Discussed possible future consideration of stimulant therapy (e.g., modafinil) if fatigue persists after mood stabilization. - Discussed the impact of chronic stress and anxiety on energy levels. 01/27/2025 Hypomagnesemia (ICD-10 - E83.42) 02/04/2025 Orthostatic hypotension (ICD-10 - I95.1) hx of low sugars, low BPs, chronic fatigue which may suggest autonomic dysfunction. 02/04/2025 Seasonal affective disorder (ICD-10 - F33.8) Seasonal affective disorder: - Symptoms consistent with seasonal affective disorder, including mood worsening in winter and benefit from sun lamp therapy. - Advised continued use of sun lamp. - Discussed Wellbutrin as a potential pharmacologic option for seasonal affective disorder. 02/04/2025 Generalized anxiety disorder (ICD-10 - F41.1) Generalized anxiety, overwhelm, and possible ADHD: - Symptoms consistent with generalized anxiety, chronic overwhelm, and possible ADHD. Differential includes anxiety, ADHD, and depression with overlapping features. Burnout and chronic stress are contributing factors. - Discussed perfectionist tendencies and reluctance to take medication due to feelings of weakness. - Patient expressed concern about sexual side effects, constipation, and drowsiness from medications. - Recommended consideration of pharmacologic intervention, including possible combination therapy with ssri and Wellbutrin, or snris such as Pristiq. - Discussed GeneSight pharmacogenomic testing to guide medication selection and minimize side effects. - Discussed possibility of ADHD being present and the potential need for stimulant therapy if symptoms persist after mood stabilization. - Provided counseling resources, including [facility] and [facility], with options for virtual therapy. - Provided handout with behavioral techniques for anxiety management, including grounding, exercise, deep breathing, and other coping strategies. - Discussed the impact of chronic stress and burnout, and the importance of addressing work-related stressors for long-term well-being. 02/04/2025 EMMY positive (ICD-10 - R76.89) recheck labs 02/04/2025 Other Hormonal and reproductive health concerns, including perimenopausal symptoms and cancer risk: - Symptoms suggestive of perimenopausal transition. Family history of estrogen-sensitive malignancies and early menopause. No current evidence of active malignancy. - Ordered hormone panel including LH, FSH, estradiol, and testosterone. - Will consider hormone replacement therapy if indicated, with discussion of cancer risk versus quality of life. - Advised repeat genetic cancer panel testing at [facility]. - Will review results and consider further imaging if indicated by laboratory findings. - Discussed the possibility of perimenopausal symptoms and the impact on fatigue and focus. Tinnitus and transient hearing loss: - Intermittent tinnitus and prior transient hearing loss in left ear, possibly post-viral or related to musculoskeletal tension. - Advised monitoring of symptoms. - Discussed possible musculoskeletal contribution and benefit of massage for neck and trapezius tightness. Genetic testing for psychiatric medication response: - GeneSight pharmacogenomic testing indicated to guide psychiatric medication selection and dosing. - Ordered GeneSight testing. - Explained the utility of GeneSight testing in guiding medication choices and minimizing side effects. Plan Of Treatment Pending Test Test Name Order Date Vitamin B12 and Folate 02/04/2025 Iron and TIBC 02/04/2025 Hemoglobin A1c 02/04/2025 Magnesium, Serum 02/04/2025 Thyroxine (T4) Free, Direct, S TSH 02/04/2025 ACTH, Plasma 02/04/2025 Prolactin 02/04/2025 Estradiol 02/04/2025 Ferritin, Serum 02/04/2025 Dehydroepiandrosterone Sulfate CBC With Differential/Platelet Sedimentation Rate-Westergren 02/04/2025 IGF-1 02/04/2025 Triiodothyronine,Free,Serum 02/04/2025 FSH and LH 02/04/2025 Vitamin D, 25-Hydroxy 02/04/2025 Cortisol - AM 02/04/2025 EMMY w/Reflex 02/04/2025 EMMY Comprehensive Panel 02/04/2025 Lipid Panel 02/04/2025 Comp. Metabolic Panel (14) 02/04/2025 Testosterone, total 02/04/2025 Hemoglobin A1c {Glycosylated} 01/27/2025 Vitamin D 25 Hydroxy 01/27/2025 T4 Free 01/27/2025 CBC w Auto Diff 01/27/2025 Comprehensive Metabolic Panel 01/27/2025 Lipid Panel {Chol, Trig, HDL, LDL} 01/27 Magnesium 01/27/2025 Thyroid Stimulating Hormone 01/27/2025 Vitamin B12 01/27/2025 Insurance Providers Payer Name Payer Address Payer Phone Subscriber Number Group Number Insured Name Patient Relationship to Insured Coverage Start Date Coverage End Date [employer] [address] [place] [address] [id number] Bella Clark Self - patient is the insured 4 Medical (General) History Medical History History ICD Code Obstructive sleep apnea (adult) (pediatr ic) G47.33 Major depressive disorder, recurrent, mi ld F33.0 Constipation, unspecified K59.00 Other specified abnormal immunological f indings in serum R76.8 Spondylosis without myelopathy or radicu lopathy, lumbar region M47.816 Spinal stenosis, lumbar region without n eurogenic claudication M48.061 Generalized anxiety disorder 300.02 Surgical History Surgery Date(Month/Year) Colonoscopy 02/26/2017
--- OUTSIDE RECORDS SUMMARY | 2025-02-08 15:13 | XMS_ITS | Clinical Summary ---
Author Organization [facility] Address [address] [place] [address] Care Team Providers Care Adult Parole Officer Name Role Phone Roxy Callahan MD Primary Care Provider Allergies No known active allergies Medications iron,carbonyl (FERRETTS CARBONYL IRON ORAL) Take by mouth Active glucosamine-cho ndroitin (glucosamine-ch ondroitin) 500-400 mg capsule Take 1 capsule by mouth 2 (two) times a day Active multivitamin-Ca -iron-minerals tablet Take 1 tablet by mouth nightly Active polyethylene glycol (MIRALAX) 17 gram/dose powder Take 17 g by mouth daily Active PNV72/iron,gluc /folic/dss/dha (CITRANATAL 90 DHA, ALGAL OIL, ORAL) Take by mouth daily Active Lactobac no.41/Bifidobac t no.7 (PROBIOTIC-10 ORAL) Take by mouth Active acetaminophen (TYLENOL) 500 mg tablet Take 1,000 mg by mouth every 6 (six) hours as needed 6 Active buPROPion XL (WELLBUTRIN XL) 150 mg 24 hr tablet 1 Active busPIRone (BUSPAR) 30 mg tablet Take 10 mg by mouth 2 (two) times a day Active polycarbophil (FIBERCON) 625 mg tablet Take 625 mg by mouth daily Active HYDROcodone-sawyer taminophen (NORCO) 10-325 mg per tablet 1-2 tabs Q 4-6H prn pain 9 Active Lacto.acidophil us-Bif.animalis 32 billion cell capsule Take 1 capsule by mouth daily Active methylcellulose , laxative, powder Take 2 g by mouth 2 (two) times a day Active acetaminophen ER (TYLENOL) 650 mg 8 hr tablet Take 2 tablets (1,300 mg total) by mouth 2 (two) times a day Active UNABLE TO FIND Take 1 each by mouth daily Ferrous Bisglycinate Chelate (Reacted Iron) Active cholecalciferol , vitD3,/vit K2 (VITAMIN D3-VITAMIN K2 ORAL) Take 1 tablet by mouth daily Active UNABLE TO FIND Take 1 each by mouth daily Ortho Austyn 430mg EPA 390mg DHA 130mg Other omega 3s 50mg DPA Active UNABLE TO FIND Take 1 each by mouth daily Reacted Magnesium capsule 235mg Elemental Active glucosamine HCl 1,500 mg tablet Take by mouth Active UNABLE TO FIND Take by mouth 2 (two) times a day SunFiber 1 scoop B.I.D Active Active Problems Problem Noted Date Diagnosed Date Hypoglycemia 08/28/2013 Overview (07/18/2016): HYPOGLYCEMIA NOS Obesity, diabetes, and hypertension syndrome Overview (07/18/2016): DYSMETABOLIC SYNDROME X Surgical History Surgery Date Site/Laterality Comments COLONOSCOPY 04/14/2011 - 04/13/2012 PLANTAR FASCIA RELEASE 04/14/2017 - 04/13/2018 Bilateral THUMB SURGERY 04/14/2018 - 04/13/2019 Right Right thumb nail removal TARSAL TUNNEL RELEASE 04/14/2018 - 04/13/2019 Left Medical History Medical History Date Comments Acne ACne BRCA2 negative BRCA1 negative Family History Medical History Relation Name Comments Breast cancer Father's Sister Skin cancer Maternal Grandfather Melanoma Maternal Grandmother Prostate cancer Maternal Great-Grandfather Pancreatic cancer Mother Breast cancer Mother's Sister 2 Cervical cancer Mother's Sister 2 Diabetes type II Other 1 Family hist ory of Diabetes -Type 2; Other Other 2 No family histo ry of Thyroid disorder; Skin cancer Paternal Grandfather Prostate cancer Paternal Great-Grandfather Relation Name Status Comments Brother Alive Daughter Alive Father Alive Father's Brother Alive Father's Sister Alive Maternal Grandfather (Age 90) Maternal Grandmother (Age 43) Maternal Great-Grandfather M GF - father Mother (Age 58) Mother's Sister 1 Alive Mother's Sister 2 Alive Other 1 Other 2 Paternal Grandfather Alive Paternal Grandmother Alive Paternal Great-Grandfather P GM - Father Son Alive Social History Tobacco Use Types Packs/Day Years Used Date Smoking Tobacco: Never Passive Smoke Exposure: Never Smokeless Tobacco: Never Alcohol Use Standard Drinks/Week Comments No 0 (1 standard drink = 0.6 oz pur e alcohol) Comments No Sex and Gender Information Value Date Recorded Sex Assigned at Not on file 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 Gender Identity Not on file Sexual Orientation Not on file Obstetrics History Last Filed Vital Signs Vital Sign Reading Time Taken Comments Blood Pressure 123/77 05/15/2023 11:14 AM DIE STORAGE CLERK Pulse 69 05/15/2023 11:14 AM DIE STORAGE CLERK Temperature 36.9 C (98.4 F) 05/15/2023 11:14 AM DIE STORAGE CLERK Respiratory Rate - - Oxygen Saturation - - Inhaled Oxygen Concentration - - Weight 60.8 kg (134 lb) 05/15/2023 11:14 AM DIE STORAGE CLERK Height 162.6 cm (5' 4) 05/15/2023 11:14 AM DIE STORAGE CLERK Body Mass Index 23 05/15/2023 11:14 AM DIE STORAGE CLERK Plan of Treatment Health Maintenance Due Date Last Done Comments Albumin Creatinine Ratio, Urine 1984 Cervical Cancer Screening 1984 Depression Screening 1984 Hemoglobin A1C 1984 Hepatitis C Screening 1984 eGFR 1984 Dilated Eye Exam 1984 Foot Exam 1984 Lipid Panel 1984 Varicella Vaccines (1 of 2 - 13+ 2-dose series) 1997 Regular Well Visit/Exam 18-64 2002 Pneumococcal vaccine <65 (1 of 2 - PCV) 2003 Breast Cancer Screening-Mammogram 02/19/2023 02/19/2022, 01/19/2021, 01/05/2020 Influenza Vaccine (#1) 2024 DTaP/Tdap/Td Vaccine (7 - Td or Tdap) 08/22/2025 08/23/2015, 09/05/1998, 08/13/1989, Additional history exists Hepatitis B Screening Completed 08/20/2002 , 03/19/2002, 02/19/2002 HPV Vaccines Completed 01/20/2007, 08/13, 06/13/2006 Procedures Procedure Name Priority Date/Time Associated Diagnosis Comments SCREENING MAMMOGRAM BILATERAL W ISAC Schedule Routine, Read Routine (OP Routine) 02/19/2022 10:16 AM DIE STORAGE CLERK Screening mammogram, encounter for from Last 3 Months or Most Recently Relevant to Health Maintenance Results * Screening Mammogram Bilateral W Isac (02/19/2022 10:16 AM DIE STORAGE CLERK) Anatomical Region Laterality Modality Breast Bilateral Mammography Narrative 02/19/2022 1:08 PM DIE STORAGE CLERK Examination: Screening Mammogram Bilateral W Isac: 02/19/22 Clinical: Screening mammogram, encounter for. Prior Study Comparisons: Comparison was made to the prior available relevant studies at the time of interpretation. Findings: Bilateral No significant masses, malignant type calcifications, skin thickening, nipple retraction, or significant lymphadenopathy is noted in either breast. The CAD review showed no significant findings. The breasts are extremely dense, which lowers the sensitivity of mammography. The patient will be notified of results by letter. Impression: BI-RADS ATLAS category (overall): 1 - Negative There is no mammographic evidence of malignancy. Routine Screening Mammogram in 1 Yr is recommended for bilateral Overall Assessment: 1 - Negative us Self Screening Mammogram IMG MAMMO PROCEDURES Fi nal Result from Last 3 Months or Most Recently Relevant to Health Maintenance Insurance ANTHEM ACCESS CHOICE [employer]THEM [employer] [place] [employer] [place] Care Teams Adult Parole Officer Relationship Specialty Start Date End Date Roxy Callahan MD [address] [place], [place] [id number] PCP - General Family Medicine 10/25/20
--- OUTSIDE RECORDS SUMMARY | 2025-02-08 15:14 | XMS_ITS | Encounter Summary ---
Author Organization [facility] Address [address] [place] [address] Phone Care Team Providers Care Teacher Private Name Role Phone Roxy Callahan MD Primary Care Provider Encounter Details Date Type Department Care Team (Late st Contact Info) Description 11/19/2022 Orders Only [facility] Scanning, Provider Social History Tobacco Use Types Packs/Day Years Used Date Smoking Tobacco: Never Assessed Alcohol Use Standard Drinks/Week Comments No 0 (1 standard drink = 0.6 oz pur e alcohol) Comments No Sex and Gender Information Value Date Recorded Sex Assigned at Not on file 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 Gender Identity Not on file Sexual Orientation Not on file documented as of this encounter Plan of Treatment Not on file documented as of this encounter Procedures Procedure Name Priority Date/Time Associated Diagnosis Comments SCAN - LABS 11/19/2022 documented in this encounter Results * SCAN - LABS (11/19/2022) us Provider Scanning Final Result documented in this encounter Visit Diagnoses Not on filedocumented in this encounter Care Teams Teacher Private Relationship Specialty Start Date End Date Roxy Callahan MD [address] [place] [address] PCP - General Family Medicine 10/25/20 documented as of this encounter
--- OUTSIDE RECORDS SUMMARY | 2025-02-08 15:14 | XMS_ITS | Encounter Summary ---
Author Organization [facility] Address [address] [place] [address] Phone Care Team Providers Care Extractor Operator Helper Name Role Phone Roxy Callahan MD Primary Care Provider Encounter Details Date Type Department Care Team (Late st Contact Info) Description 09/24/2022 Orders Only [facility] Scanning, Provider Social History Tobacco Use Types Packs/Day Years Used Date Smoking Tobacco: Never Assessed Alcohol Use Standard Drinks/Week Comments No 0 (1 standard drink = 0.6 oz pur e alcohol) Comments No Sex and Gender Information Value Date Recorded Sex Assigned at Not on file 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 Gender Identity Not on file Sexual Orientation Not on file documented as of this encounter Plan of Treatment Not on file documented as of this encounter Procedures Procedure Name Priority Date/Time Associated Diagnosis Comments SCAN - LABS 09/24/2022 documented in this encounter Results * SCAN - LABS (09/24/2022) us Provider Scanning Final Result documented in this encounter Visit Diagnoses Not on filedocumented in this encounter Care Teams Extractor Operator Helper Relationship Specialty Start Date End Date Roxy Callahan MD [address] [place] [address] PCP - General Family Medicine 10/25/20 documented as of this encounter
--- OUTSIDE RECORDS SUMMARY | 2025-02-08 15:14 | XMS_ITS | Encounter Summary ---
Author Organization [facility] Address [address] [place] [address] Phone Care Team Providers Care Filing Clerk Name Role Phone Roxy Callahan MD Primary Care Provider Encounter Details Date Type Department Care Team (Late st Contact Info) Description 10/04/2022 Orders Only [facility] Scanning, Provider Social History Tobacco Use Types Packs/Day Years Used Date Smoking Tobacco: Never Assessed Alcohol Use Standard Drinks/Week Comments No 0 (1 standard drink = 0.6 oz pur e alcohol) Comments No Sex and Gender Information Value Date Recorded Sex Assigned at Not on file Legal Sex Female 1:29 AM MIGRATION SPECIALIST Gender Identity Not on file Sexual Orientation Not on file documented as of this encounter Plan of Treatment Not on file documented as of this encounter Procedures Procedure Name Priority Date/Time Associated Diagnosis Comments SCAN - LABS 10/04/2022 documented in this encounter Results * SCAN - LABS (10/04/2022) us Provider Scanning Final Result documented in this encounter Visit Diagnoses Not on filedocumented in this encounter Care Teams Filing Clerk Relationship Specialty Start Date End Date Roxy Callahan MD [address] [place] [address] PCP - General Family Medicine 10/25/20 documented as of this encounter
--- OUTSIDE RECORDS SUMMARY | 2025-02-08 15:14 | XMS_ITS | Encounter Summary ---
Author Organization [facility] Address [address] [place] [address] Phone Care Team Providers Care Economic Developer Name Role Phone Roxy Callahan MD Primary Care Provider Encounter Details Date Type Department Care Team (Late st Contact Info) Description 03/26/2022 Orders Only [facility] Scanning, Provider Social History Tobacco Use Types Packs/Day Years Used Date Smoking Tobacco: Never Assessed Alcohol Use Standard Drinks/Week Comments No 0 (1 standard drink = 0.6 oz pur e alcohol) Comments No Sex and Gender Information Value Date Recorded Sex Assigned at Not on file Legal Sex Female 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 Gender Identity Not on file Sexual Orientation Not on file documented as of this encounter Plan of Treatment Not on file documented as of this encounter Procedures Procedure Name Priority Date/Time Associated Diagnosis Comments SCAN - LABS 03/26/2022 documented in this encounter Results * SCAN - LABS (03/26/2022) us Provider Scanning Final Result documented in this encounter Visit Diagnoses Not on filedocumented in this encounter Care Teams Economic Developer Relationship Specialty Start Date End Date Roxy Callahan MD [address] [place] [address] PCP - General Family Medicine 10/25/20 documented as of this encounter
--- OUTSIDE RECORDS SUMMARY | 2025-02-08 15:14 | XMS_ITS | Encounter Summary ---
Author Organization [facility] Address [address] [place] [address] Phone Care Team Providers Care Methods And Procedures Analyst Name Role Phone Roxy Callahan MD Primary Care Provider Encounter Details Date Type Department Care Team (Late st Contact Info) Description 09/25/2022 Orders Only [facility] Scanning, Provider Social History Tobacco Use Types Packs/Day Years Used Date Smoking Tobacco: Never Assessed Alcohol Use Standard Drinks/Week Comments No 0 (1 standard drink = 0.6 oz pur e alcohol) Comments No Sex and Gender Information Value Date Recorded Sex Assigned at Not on file 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 Gender Identity Not on file Sexual Orientation Not on file documented as of this encounter Plan of Treatment Not on file documented as of this encounter Procedures Procedure Name Priority Date/Time Associated Diagnosis Comments SCAN - LABS 09/25/2022 documented in this encounter Results * SCAN - LABS (09/25/2022) us Provider Scanning Final Result documented in this encounter Visit Diagnoses Not on filedocumented in this encounter Care Teams Methods And Procedures Analyst Relationship Specialty Start Date End Date Roxy Callahan MD [address] [place] [address] PCP - General Family Medicine 10/25/20 documented as of this encounter
--- OUTSIDE RECORDS SUMMARY | 2025-02-08 15:14 | XMS_ITS | Encounter Summary ---
Author Organization [facility] Address [address] [place] [address] Phone Care Team Providers Care Electrician Supervisor Substation Name Role Phone Roxy Callahan MD Primary Care Provider Encounter Details Date Type Department Care Team (Late st Contact Info) Description 04/17/2022 Orders Only [facility] Scanning, Provider Social History Tobacco Use Types Packs/Day Years Used Date Smoking Tobacco: Never Assessed Alcohol Use Standard Drinks/Week Comments No 0 (1 standard drink = 0.6 oz pur e alcohol) Comments No Sex and Gender Information Value Date Recorded Sex Assigned at Not on file 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 Gender Identity Not on file Sexual Orientation Not on file documented as of this encounter Plan of Treatment Not on file documented as of this encounter Procedures Procedure Name Priority Date/Time Associated Diagnosis Comments SCAN - LABS 04/17/2022 documented in this encounter Results * SCAN - LABS (04/17/2022) us Provider Scanning Final Result documented in this encounter Visit Diagnoses Not on filedocumented in this encounter Care Teams Electrician Supervisor Substation Relationship Specialty Start Date End Date Roxy Callahan MD [address] [place] [address] PCP - General Family Medicine 10/25/20 documented as of this encounter
--- OUTSIDE RECORDS SUMMARY | 2025-02-08 15:14 | XMS_ITS | Encounter Summary ---
Author Organization [facility] Address [address] [place] [address] Phone Care Team Providers Care Spike Maker Name Role Phone Roxy Callahan MD Primary Care Provider Encounter Details Date Type Department Care Team (Late st Contact Info) Description 04/09/2022 Orders Only [facility] Scanning, Provider Social History Tobacco Use Types Packs/Day Years Used Date Smoking Tobacco: Never Assessed Alcohol Use Standard Drinks/Week Comments No 0 (1 standard drink = 0.6 oz pur e alcohol) Comments No Sex and Gender Information Value Date Recorded Sex Assigned at Not on file 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 Gender Identity Not on file Sexual Orientation Not on file documented as of this encounter Plan of Treatment Not on file documented as of this encounter Procedures Procedure Name Priority Date/Time Associated Diagnosis Comments SCAN - LABS 04/09/2022 documented in this encounter Results * SCAN - LABS (04/09/2022) us Provider Scanning Final Result documented in this encounter Visit Diagnoses Not on filedocumented in this encounter Care Teams Spike Maker Relationship Specialty Start Date End Date Roxy Callahan MD [address] [place] [address] PCP - General Family Medicine 10/25/20 documented as of this encounter
--- OUTSIDE RECORDS SUMMARY | 2025-02-08 15:14 | XMS_ITS | Encounter Summary ---
Author Organization [facility] Address [address] [place] [address] Phone Care Team Providers Care Surgical Corsetier Name Role Phone Roxy Callahan MD Primary Care Provider Encounter Details Date Type Department Care Team (Late st Contact Info) Description 04/24/2023 Orders Only [facility] Scanning, Provider Social History Tobacco Use Types Packs/Day Years Used Date Smoking Tobacco: Never Assessed Alcohol Use Standard Drinks/Week Comments No 0 (1 standard drink = 0.6 oz pur e alcohol) Comments No Sex and Gender Information Value Date Recorded Sex Assigned at Not on file 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 Gender Identity Not on file Sexual Orientation Not on file documented as of this encounter Plan of Treatment Not on file documented as of this encounter Procedures Procedure Name Priority Date/Time Associated Diagnosis Comments SCAN - LABS 04/24/2023 documented in this encounter Results * SCAN - LABS (04/24/2023) us Provider Scanning Final Result documented in this encounter Visit Diagnoses Not on filedocumented in this encounter Care Teams Surgical Corsetier Relationship Specialty Start Date End Date Roxy Callahan MD [address] [place] [address] PCP - General Family Medicine 10/25/20 documented as of this encounter
--- OUTSIDE RECORDS SUMMARY | 2025-02-08 15:14 | XMS_ITS | Encounter Summary ---
Author Organization [facility] Address [address] [place] [address] Phone Care Team Providers Care Supervisor Riprap Placing Name Role Phone Roxy Callahan MD Primary Care Provider Encounter Details Date Type Department Care Team (Late st Contact Info) Description 02/13/2023 Orders Only [facility] Scanning, Provider Social History Tobacco Use Types Packs/Day Years Used Date Smoking Tobacco: Never Assessed Alcohol Use Standard Drinks/Week Comments No 0 (1 standard drink = 0.6 oz pur e alcohol) Comments No Sex and Gender Information Value Date Recorded Sex Assigned at Not on file 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 Gender Identity Not on file Sexual Orientation Not on file documented as of this encounter Plan of Treatment Not on file documented as of this encounter Procedures Procedure Name Priority Date/Time Associated Diagnosis Comments SCAN - RADIOLOGY/IMAGING 02/13/2023 documented in this encounter Results * SCAN - RADIOLOGY/IMAGING (02/13/2023) Anatomical Region Laterality Modality Other us Provider Scanning Final Result documented in this encounter Visit Diagnoses Not on filedocumented in this encounter Care Teams Supervisor Riprap Placing Relationship Specialty Start Date End Date Roxy Callahan MD [address] [place] [address] PCP - General Family Medicine 10/25/20 documented as of this encounter
--- OUTSIDE RECORDS SUMMARY | 2025-02-08 15:14 | XMS_ITS | Encounter Summary ---
Author Organization [facility] Address [address] [place] [address] Phone Care Team Providers Care Nursery Hand Name Role Phone Roxy Callahan MD Primary Care Provider Encounter Details Date Type Department Care Team (Late st Contact Info) Description 03/25/2023 Orders Only [facility] Scanning, Provider Social History Tobacco Use Types Packs/Day Years Used Date Smoking Tobacco: Never Assessed Alcohol Use Standard Drinks/Week Comments No 0 (1 standard drink = 0.6 oz pur e alcohol) Comments No Sex and Gender Information Value Date Recorded Sex Assigned at Not on file Legal Sex Female 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 Gender Identity Not on file Sexual Orientation Not on file documented as of this encounter Plan of Treatment Not on file documented as of this encounter Procedures Procedure Name Priority Date/Time Associated Diagnosis Comments SCAN - LABS 03/25/2023 documented in this encounter Results * SCAN - LABS (03/25/2023) us Provider Scanning Final Result documented in this encounter Visit Diagnoses Not on filedocumented in this encounter Care Teams Nursery Hand Relationship Specialty Start Date End Date Roxy Callahan MD [address] [place] [address] PCP - General Family Medicine 10/25/20 documented as of this encounter
== END 2025-02-08 13:14 | disposition home or self-care (01) ==
PROVIDERS: Visit Provider Obstetrics & Gynecology
DX: R92.8 Other abnormal and inconclusive findings on diagnostic imaging of breast (principal); Z80.3 Family history of malignant neoplasm of breast
CPT/HCPCS: 77062; 77066; G0279